=== PATIENT | female | born 1945 | race Caucasian/White ===

== ENCOUNTER → 2017-05-27 12:49 | Outpatient (CLI) | payer MEDICARE, MEDICAID, SELFPAY ==
--- NOTE | 2017-05-27 12:50 | CA_ITS ---
PROCEDURE: 2-D M-mode and color Doppler study INDICATIONS FOR THE TEST: Chest pain COPD Heart Murmur+ Tobacco Smoking Palpitations Fatigue Syncope Edema Hypertension+Diabetes Mellitus Rheumatic Fever SOB [place] Obesity+Hyperlipidemia+ Family History HD+ Additional History PATIENT INFORMATION HEIGHT: 54 WEIGHT: 138 GENDER: Female B/P: 130/84 2-D/M-MODE INTERPRETATION: 2-D MEASUREMENTS OBSERVED VALUES IN CMS Right Ventricular Dimension (RVDd) 2.2 Interventricular Septum (Thickness)(IVsd) 1.3 Left Ventricular Internal Dimensions(LVIDd) 3.7 Left Ventricular Posterior Wall (Thickness)(LVPWd) 1.3 Aortic Root 2.5 Aortic Cusp Separation Left Atrial Dimensions (LAD) 2D 1. Technically difficult study because of the patient's factor and poor acoustic windows 2. The left atrium is moderately enlarged, left ventricle is normal size, there is mild concentric left ventricular hypertrophy, visually estimated ejection fraction of 55% with no obvious regional wall motion abnormality. 3. The right atrium is mildly enlarged, right ventricle is normal size and contractility. 4. The aortic valve is minimally thickened and calcified. 5. The mitral valve leaflets are not well visualized, there is mitral calcification present, there appears to be prolapse of the posterior mitral leaflet. 6. The tricuspid valve leaflets are minimally thickened. 7. The pulmonic valve is poorly visualized. 8. No significant pericardial effusion noted. DOPPLER INTERROGATION: Doppler interrogation of the aortic, mitral and tricuspid valve reveals presence of mild aortic, there is mitral regurgitation which is difficult to quantify it is likely in severe range, and mild tricuspid regurgitation. Tricuspid and jet velocity insufficient for calculation of the right ventricular systolic pressure, grade 1 diastolic dysfunction seen with tissue Doppler evidence of raised left atrial pressure. CONCLUSION: 1. Technically difficult study because of the patient's factor and poor acoustic windows 2. Moderately enlarged left atrium, normal left ventricular size, mild concentric left ventricular hypertrophy, visually estimated ejection fraction 55% with no obvious regional wall motion abnormality, grade 1 diastolic dysfunction seen with tissue Doppler evidence of raised left atrial pressure. 3. Mild aortic regurgitation. 4. Abnormal mitral valve with likely severe mitral regurgitation, transesophageal echocardiogram is recommended for further evaluation of the mitral valve morphology and severity of the mitral regurg
== END ==
PROVIDERS: Family Provider Internal Medicine Adolescent Medicine; PCP Internal Medicine Adolescent Medicine; Visit Provider Internal Medicine Adolescent Medicine
DX: R01.1 Cardiac murmur, unspecified (principal); I35.1 Nonrheumatic aortic (valve) insufficiency
CPT/HCPCS: 93306

== ENCOUNTER 2017-07-01 11:52 | Day surgery (SDC) | payer MEDICARE, MEDICAID, SELFPAY ==
[2017-07-01] VITALS (7 sets, daily range): BP systolic 85–163; BP diastolic 46–104; PULSE 60–91; RESP 16–20; TEMP 36.6; O2SAT 93–98; BMI 33.7
--- NOTE | 2017-07-01 12:24 | CA_ITS ---
Procedure: Transesophageal echocardiogram Indication for procedure: MR Procedure: The patient was brought into cardiac catheter lab holding area in hemodynamically stable condition, after the informed consent, conscious sedation was provided with anesthesiologist, local anesthesia was applied, and transesophageal echocardiogram performed without any difficulty, patient tolerated the procedure well. Findings: 1. Left atrium is moderately enlarged, left atrial appendage is free of thrombus, there is adequate appendage flow by spectral Doppler. 2. The right atrium is normal size, 3. The intra-atrial septum is intact, there is no flow across the intra-atrial septum, agitated saline contrast study fails to identify intracardiac shunt. 4. The aortic valve is minimally thickened and fibrosed, there is no aortic stenosis, there is mild aortic insufficiency. 5. The mitral valve has mitral calcification, mitral valve leaflets of myxomatous, there is mary prolapse of the both anterior and posterior mitral leaflet. There is no mitral stenosis, there is severe mitral regurgitation. 6. The tricuspid valve is grossly normal, there is mild tricuspid regurgitation 7. The pulmonic valve is structurally normal. 8. The right ventricle is normal size and contractility. 9. The left ventricle is normal size, visually estimated ejection fraction 55% with no obvious regional wall motion abnormality. 10. The ascending arch and descending thoracic aorta is normal 11. No significant pericardial effusion noted. Conclusion: 1. Moderately enlarged left atrium, normal left ventricular size, visually estimated ejection fraction 55% with no obvious regional wall motion abnormality. 2. Abnormal mitral valve as described above with prolapse of both anterior and posterior mitral leaflet, associated with severe mitral regurgitation. 3. Agitated saline contrast study is to identify intracardiac shunt. 4. Mild aortic insufficiency. 5. No significant pericardial effusion noted.
--- NOTE | 2017-07-01 12:51 | HMH.ANESCL ---
[facility] Anesthesia Checklist - Patient Identification Patient Identification: Arm Band - Structural Data Admitted From: Long-term Nursing Facility Consent for Planned Operative Procedure(s) Verified: Yes Verified Documents: Surgical Consent, History and Physical - NPO Status Verified Time NPO: 00:00 - Additional verifications Patient : No Anesthesia Reactions: No - Airway Assessment C-Spine Mobility Assessed: Yes TMJ Mobility Assessed: Yes Dentition: Good Dentition - Neurological Assessment Level of Consciousness: Awake Hx Seizures: No Numbness or tingling in extremities: No - Anesthesia Plan Anesthesia Risk discussed: Yes Anesthesia Plan: Verified ASA Class: II Anesthesia Type: MAC [facility] Anesthesia HX I have reviewed the patient's past medical history: Yes Medical History: Reports:: Hypertension, Valvular Heart Disease (severe MVR) Other Surgeries: Yes: Hysterectomy-Total, Other (Multiple eye surgeries) *Family Hx:: Unable to obtain
--- NOTE | 2017-07-01 12:55 | P.PN_ITS ---
[facility] Anesthesia Checklist - Patient Identification Patient Identification: Arm Band - Structural Data Admitted From: Long-term Nursing Facility Consent for Planned Operative Procedure(s) Verified: Yes Verified Documents: Surgical Consent, History and Physical - NPO Status Verified Time NPO: 00:00 - Additional verifications Patient : No Anesthesia Reactions: No - Airway Assessment C-Spine Mobility Assessed: Yes TMJ Mobility Assessed: Yes Dentition: Good Dentition - Neurological Assessment Level of Consciousness: Awake Hx Seizures: No Numbness or tingling in extremities: No - Anesthesia Plan Anesthesia Risk discussed: Yes Anesthesia Plan: Verified ASA Class: II Anesthesia Type: MAC [facility] Anesthesia HX I have reviewed the patient's past medical history: Yes Medical History: Reports:: Hypertension, Valvular Heart Disease (severe MVR) Other Surgeries: Yes: Hysterectomy-Total, Other (Multiple eye surgeries) *Family Hx:: Unable to obtain
== END 2017-07-01 14:50 ==
PROVIDERS: Family Provider Internal Medicine Adolescent Medicine; PCP Internal Medicine Adolescent Medicine; Visit Provider Internal Medicine Cardiovascular Disease
DX: I34.0 Nonrheumatic mitral (valve) insufficiency (principal)
CPT/HCPCS: 93312

== ENCOUNTER → 2017-07-15 07:11 | Outpatient (CLI) | payer MEDICARE, MEDICAID, SELFPAY ==
--- NOTE | 2017-07-15 07:14 | NM_ITS ---
History and Indications: Mitral regurgitation, mitral valve prolapse. Procedure: Patient received a 0.4 mg of Lexiscan, resting heart rate was 82 bpm resting blood pressure 154/81, with Lexiscan maximum heart rate achieved was 107 bpm which is less than 85% of the maximum predicted heart rate and a blood pressure was 151/82. With Lexiscan patient denied any complained of chest pain or shortness of breath. Electrocardiogram: Resting electrocardiogram showed sinus rhythm, with progression, with Lexiscan occasional premature ventricular complex seen, there is less than 1.[address] segment depression noted from the baseline EKG. The EKG portion of the Lexiscan Myoview is nondiagnostic. Cardiac stress and resting SPECT images: Cardiac stress and rest SPECT images were obtained using technetium 99 Myoview 31.4 mCi at stress, and 9.7 mCi at rest. Gated SPECT further analysis of segmental wall motion and calculation of the ejection fraction. Cardiac stress and resting SPECT images show uniform myocardial activity without any segmental perfusion abnormality, computer derived ejection fraction is over 65% with no obvious regional wall motion abnormality, right ventricle is normal size and contractility. Conclusion: 1. The EKG portion of the Lexiscan Myoview is nondiagnostic. 2. No obvious scintigraphic evidence of reversible ischemia seen, computer ejection fraction over 65% with no signal wall motion abnormality, right ventricle is normal size and contractility. 3. Normal Lexiscan Myoview study.
== END ==
PROVIDERS: Family Provider Internal Medicine Adolescent Medicine; PCP Internal Medicine Adolescent Medicine; Visit Provider Internal Medicine Cardiovascular Disease
DX: I34.0 Nonrheumatic mitral (valve) insufficiency (principal); R09.89 Other specified symptoms and signs involving the circulatory and respiratory systems; R01.1 Cardiac murmur, unspecified; R93.1 Abnormal findings on diagnostic imaging of heart and coronary circulation; R94.31 Abnormal electrocardiogram [ECG] [EKG]; I10 Essential (primary) hypertension; Z82.49 Family history of ischemic heart disease and other diseases of the circulatory system; E66.9 Obesity, unspecified
CPT/HCPCS: 78452; 93017; A9502; J2785

== ENCOUNTER → 2018-02-22 14:16 | Outpatient (CLI) | payer MEDICARE, MEDICAID, SELFPAY | PROVIDERS: PCP Nurse Practitioner Family; Visit Provider Internal Medicine Cardiovascular Disease | DX: I10 Essential (primary) hypertension (principal); I34.0 Nonrheumatic mitral (valve) insufficiency; R01.1 Cardiac murmur, unspecified; R09.89 Other specified symptoms and signs involving the circulatory and respiratory systems; R94.31 Abnormal electrocardiogram [ECG] [EKG]; Z82.49 Family history of ischemic heart disease and other diseases of the circulatory system | CPT/HCPCS: 93306 ==

== ENCOUNTER → 2018-11-17 10:05 | Outpatient (CLI) | payer MEDICARE, MEDICAID, SELFPAY ==
--- NOTE | 2018-11-17 10:13 | XR_ITS ---
PROCEDURE: XR DEXA AXIAL SKELETON CLINICAL HISTORY: OSTEOPAROSIS COMPARISON: 09/17/2015 FINDINGS: The L1-L4 density has a T-score of -2 with BMD of 0.935. This has decreased by 1 percent. Lowest density in the pelvis is in the left femoral neck at 0.664 grams/centimeter sq with T-score of -2.7 consistent with osteoporosis and has decreased by 1.5 percent IMPRESSION: Osteoporosis without fracture risk. Treatment advised. Suggest follow-up exam November 2019 Dictated by: Juan David Laughlin MD 11/17/2018 17:55 Signed by: <Electronically signed by Juan David Laughlin MD in [place]> 11/17/2018 17:55
--- NOTE | 2018-11-17 10:13 | MM_ITS ---
PROCEDURE: MM DIG SCREENING MAMM BI W/CAD CLINICAL INDICATION: SCREENING routine screening mammogram. No new complaints. But no hormones. Noncontributory family history put COMPARISON: PB MAMM SCREEN BILAT DIG PNL from 07/15/2009 DMSB DIGITAL MAMM-SCREEN BILATERAL from 08/18/2012 DMSB DIG MAMM-SCREEN SUSIE from 08/22/2013 DMSB DIG MAMM-SCREEN SUSIE from 08/30/2014 DMDXUAVL DIG MAMM-DX UNI ADD VIEWS-LT from 09/13/2014 DMSB DIG MAMM-SCREEN SUSIE from 09/17/2015 TECHNIQUE: Standard CC and MLO images were obtained. R2 CAD reviewed. Additional left MLO and CC nipple profile view included-helpful FINDINGS: Minimal up to moderate residual fibroglandular elements bilaterally but no new findings of significance. No suspicious or dominant mass. Stable minor asymmetry. scattered small calcifications in both breasts but no suspicious calcifications Right breast: No new areas of concern follow-up in 1 year Left breast. Additional MLO view is helpful in confirming stability on. MLO unchanged appearance since . Small grouping punctate calcifications deep left breast cc view have been present since 2014 2013 with no significant appearing change. On annual follow-up adequate IMPRESSION: Stable bilateral mammogram with no significant new findings. Stable mild asymmetry Follow-up 1 year recommended BI-RAD Category: 2 Benign Finding(s) FOLLOW-UP: 1YR 1 Year Follow-up (A letter has been sent to the patient regarding results of the study.) Dictated by: Yuri Andrew MD 11/18/2018 09:47 Signed by: <Electronically signed by Yuri Andrew MD in [place]> 11/18/2018 09:47
== END ==
PROVIDERS: PCP Internal Medicine Adolescent Medicine; Visit Provider Internal Medicine Adolescent Medicine
DX: Z12.31 Encounter for screening mammogram for malignant neoplasm of breast (principal); Z13.820 Encounter for screening for osteoporosis; M81.0 Age-related osteoporosis without current pathological fracture
CPT/HCPCS: 77067; 77080

== ENCOUNTER 2018-12-20 10:27 | Outpatient (CLI) | payer MEDICARE, MEDICAID, SELFPAY ==
[2018-12-20 10:42] VITALS: BP 150/94; PULSE 85; RESP 18; TEMP 36.6; O2SAT 98
== END 2018-12-20 11:01 | disposition home or self-care (01) ==
LOC: INF 10:27
PROVIDERS: PCP Internal Medicine Adolescent Medicine; Visit Provider Nurse Practitioner Family
DX: M81.0 Age-related osteoporosis without current pathological fracture (principal)
CPT/HCPCS: 96372; J0897

== ENCOUNTER → 2019-03-14 09:35 | Outpatient (CLI) | payer MEDICARE, MEDICAID, SELFPAY ==
--- NOTE | 2019-03-14 09:38 | CA_ITS ---
APPROVED REPORT EXAM: Comprehensive 2D, Doppler, and color-flow Echocardiogram Reading Tutor: Tika Alvarez RDCS Ht: 5 ft 6 in Wt: 132lbs BSA: 1.68 BP: 150/90 mmHg Indications: Mitral Valve Disease, Murmur, Hypertension/HDD 2D Dimensions LVOT 2.00 cm (M/F) 1.5-2.5 M-Mode Dimensions RVDd 1.38 cm (0.9-2.6) LVDd 4.41 cm (3.5-5.7) LVDs 3.33 cm (3.5-5.7) IVSd 1.45 cm (0.6-1.1) PWd 1.08 cm (0.6-1.1) EF (Teich) 48.90% FS 24.50% EDV (Teich) 88.20 mL ESV (Teich) 45.10 mL Aortic Valve AO VTI 149.01 (18-25 cm) Mitral Valve MV PHT 48.00 ms Left Ventricle Left atrium is moderately enlarged, left ventricle is normal size, mild concentric left ventricular hypertrophy, visually estimated ejection fraction 55% with no regional wall motion abnormality. Diastolic parameters are inconclusive. Right Ventricle Right atrium and right ventricular mildly enlarged with normal contractility. Aortic Valve Aortic valve is minimally thickened and fibrosed. There is no aortic stenosis. Mitral Valve Mitral valve leaflets are minimally thickened, leaflets are not well visualized, there is no mitral stenosis, there is severe mitral regurgitation. Tricuspid Valve Tricuspid valve is grossly normal, there is mild tricuspid regurgitation, calculated right ventricular systolic pressure 60 mmHg which is moderately elevated. Conclusion 1. Moderately enlarged left atrium, normal left ventricular size, mild concentric left ventricular hypertrophy, visually estimated ejection fraction 55% with no regional wall motion abnormality, diastolic parameters are inconclusive. 2. Abnormal mitral valve with severe mitral regurgitation, morphology of the valve is not well-visualized in the study. 3. Mild tricuspid regurgitation, calculated right ventricular systolic pressure 60 mmHg which is moderately elevated. 4. No significant pericardial effusion noted. Electronically signed by : Michele Paulson, 03/15/2019 05:46:36
== END ==
PROVIDERS: PCP Internal Medicine Adolescent Medicine; Visit Provider Internal Medicine Cardiovascular Disease
DX: I10 Essential (primary) hypertension (principal); I34.0 Nonrheumatic mitral (valve) insufficiency; R01.1 Cardiac murmur, unspecified; R94.31 Abnormal electrocardiogram [ECG] [EKG]
CPT/HCPCS: 93306

== ENCOUNTER → 2020-08-27 08:56 | Outpatient (CLI) | payer MEDICARE, MEDICAID, SELFPAY ==
--- NOTE | 2020-08-27 09:00 | XR_ITS ---
PROCEDURE: XR DEXA AXIAL SKELETON CLINICAL HISTORY: POST MENOPAUSAL COMPARISON: CR BONE3 BONE DENSITOMETRY(HIP:LT SPINE from 09/17/2015 FINDINGS: The right hip BMD is 0.578 with a T-score of -2.4. The left hip BMD is 0.593 with a T-score of -2.3. The lumbar spine BMD is 0.868 with a T-score of -1.6. Previously the lowest bone density was in the left femoral neck with T-score -2.6. IMPRESSION: This patient is considered osteopenic according to the World Health Organization criteria. Bone density is between 10 and 25 percent below young normal. Fracture risk is moderate. Treatment is advised. Based on these results a follow-up exam is recommended in 2 year. Dictated by: Juan David Laughlin MD 08/28/2020 07:44 Juan David Laughlin MD in [place] 08/28/2020 07:44
== END ==
PROVIDERS: PCP Internal Medicine Adolescent Medicine; Visit Provider Nurse Practitioner Family
DX: Z78.0 Asymptomatic menopausal state (principal); M85.89 Other specified disorders of bone density and structure, multiple sites
CPT/HCPCS: 77080

== ENCOUNTER → 2021-09-11 09:21 | Outpatient (CLI) | payer MEDICARE, MEDICAID, SELFPAY ==
--- NOTE | 2021-09-11 09:27 | XR_ITS ---
FINAL REPORT TECHNIQUE: Bone mineral density was calculated of the lumbar spine and hip. CLINICAL HISTORY: POST MENOPAUSAL COMPARISON: August 27, 2020 FINDINGS: DEXA BONE DENSITY AXIAL SKELETON Using L1-4, the bone mineral density of the spine is 0.886 g/cm2, corresponding to T-score of -1.5. Was previously 0.868 g/cm2 corresponding to a T score of -1.6. Using the left hip, the bone mineral density of the femoral neck is 0.586 g/cm2, corresponding to a T-score of -2.4. This previously 0.593 g/cm2 corresponding to a T score of -2.3. NOTE: T-score: Standard deviation compared with peak bone mass of young adult mean. *Following the recommendations of the International Society of Bone densitometry, classification of hip BMD is based on the lower of two T-scores; total hip or femoral neck. IMPRESSION: Diminished bone mineral density of the lumbar spine and left hip consistent with osteopenia, stable from prior . Reviewed, Interpreted and Dictated by Jerry Ledezma III, MD Transcribed by Marissa Soto Authenticated and [facility]
== END ==
PROVIDERS: PCP Internal Medicine Adolescent Medicine; Visit Provider Internal Medicine Adolescent Medicine
DX: M81.0 Age-related osteoporosis without current pathological fracture (principal)
CPT/HCPCS: 77080

== ENCOUNTER → 2021-12-12 11:01 | Outpatient (CLI) | payer MEDICARE, MEDICAID, SELFPAY ==
[2021-12-12 12:06] LABS: Basophils % 0.5 % (0.1-2.0); Eosinophils # 0.1 K/mm3 (0.0-0.4); Eosinophils % 1.6 % (0.1-12.0); Hemoglobin 12.1 g/dL (12.2-16.2); Lymphocytes # 1.2 K/mm3 (0.7-4.5); Lymphocytes % 16.3 % (10-50); Mean Corpuscular HGB Conc 31.7 g/dL (31.8-35.4); Mean Corpuscular Volume 97.8 fl (81-99); Mean Platelet Volume 7.6 fl (7.4-10.4); Monocytes # 0.5 K/mm3 (0.1-1.0); Monocytes % 7.6 % (1.7-9.3); Neutrophils # 5.2 K/mm3 (1.8-7.8); Platelet Count 225 K/mm3 (142-424); Red Blood Count 3.89 M/mm3 (4.20-5.40); Red Cell Distribution Width 18.5 % (11.5-17.5)
[2021-12-12 12:53] LABS: Anion Gap 11.6 mEq/L (5-15); Blood Urea Nitrogen 27 mg/dl (7-17); Calcium 9.1 mg/dl (8.4-10.2); Carbon Dioxide 22 mmol/L (22.0-30.0); Chloride 110 mmol/L (98-107); Estimated Glomerular Filt Rate 48 ml/min (>60); GFR (African American) 58 ML/MIN (>60); Glucose 106 mg/dl (74-100); Potassium 4.6 mmoL/L (3.5-5.1); Sodium 139 mmol/L (136-145)
[2021-12-12 13:02] LABS: NT Pro Brain Natriuretic Pep. 3840 pg/mL (0-450)
== END ==
PROVIDERS: PCP Nurse Practitioner Family; Visit Provider Nurse Practitioner Family
DX: I34.0 Nonrheumatic mitral (valve) insufficiency (principal); M15.0 Primary generalized (osteo)arthritis; R06.09 Other forms of dyspnea
CPT/HCPCS: 80048; 83880; 85025

== ENCOUNTER → 2021-12-16 07:53 | Outpatient (CLI) | payer MEDICARE, MEDICAID, SELFPAY ==
[2021-12-16 08:40] LABS: Chloride 101 mmol/L (98-107)
[2021-12-16 08:41] LABS: Potassium 3.4 mmoL/L (3.5-5.1); Sodium 140 mmol/L (136-145)
[2021-12-16 08:44] LABS: Anion Gap 15.4 mEq/L (5-15); Blood Urea Nitrogen 27 mg/dl (7-17); Calcium 8.6 mg/dl (8.4-10.2); Carbon Dioxide 27 mmol/L (22.0-30.0); Estimated Glomerular Filt Rate 54 ml/min (>60); GFR (African American) 65 ML/MIN (>60); Glucose 105 mg/dl (74-100)
== END ==
PROVIDERS: PCP Nurse Practitioner Family; Visit Provider Nurse Practitioner Family
DX: I10 Essential (primary) hypertension (principal)
CPT/HCPCS: 80048

== ENCOUNTER → 2022-01-27 09:16 | Outpatient (CLI) | payer MEDICARE, MEDICAID, SELFPAY ==
--- NOTE | 2022-01-27 09:22 | CA_ITS ---
APPROVED REPORT EXAM: Comprehensive 2D, Doppler, and color-flow Echocardiogram Diamond Cleaver: Casie Caballero RVT Ht: 4 ft 6 in Wt: 126lbs BSA: 1.42 BP: 148/60 mmHg Indications: EDEMA,CAD,SEVERE MR WITH FAILED MITRAL RING,HTN,DM,MURMUR 2D Dimensions LVOT 2.08 cm (M/F) 1.5-2.5 LA Volume 67.80 mL LA Volume Index 47.74 mL/m2 (M/F) 16-34 M-Mode Dimensions RVDd 2.93 cm (0.9-2.6) LA Diam 4.49 cm (1.9-4.0) LVDd 4.38 cm (3.5-5.7) Ao Diam 3.00 cm (2.0-3.7) LVDs 3.14 cm (3.5-5.7) IVSd 0.76 cm (0.6-1.1) PWd 0.85 cm (0.6-1.1) EF (Teich) 55.00% FS 28.30% EDV (Teich) 86.80 mL TAPSE 2.58 (<1.7) ESV (Teich) 39.10 mL LV Diastology E Decel Time 150.00 (160-240 msec) E/A Ratio 1.5 MED E' 9.70 (< 7 cm/sec) E'/MED E' Ratio 10.45 (>14) LAT E' 13.80 (<10 cm/sec) E/LAT E' Ratio 7.35 (>14) Aortic Valve AI PHT 725.00 ms AO Peak GR. 3.60 mmHg AO VTI 34.20 (18-25 cm) Mitral Valve MV E Max Kojo. 101.00 (40-130 cm/s) MV A Velocity 69.00 (40-130 cm/s) E/A Ratio 1.46 MV Decel. Time 150.00 (160-240 ms) MV PHT 44.00 ms Pulmonary Valve PV Peak Velocity 38.00 (50-150 cm/s) Tricuspid Valve TR P. Velocity 395.00 cm/s RAP Estimate 10.00 mmHg RVSP 72.30 mmHg Left Ventricle Technically difficult study because of the patient factors and poor acoustic windows, endocardial surfaces are poorly visualized. Left atrium is moderately enlarged, left ventricle is normal size mild concentric left hypertrophy, estimated ejection fraction 55% with no regional wall motion abnormality, diastolic parameters are inconclusive. There is flattening of the interventricular septum during systole and diastole consistent with pressure and volume overload in right ventricle. Right Ventricle Right atrium and right ventricle moderately enlarged, contractility of the right ventricle is normal. Aortic Valve Aortic valve is thickened and calcified without aortic stenosis, there is mild aortic insufficiency. Mitral Valve Historically patient has mitral valve ring, leaflets are minimally thickened, degenerative changes present both anterior posterior mitral leaflet, there is severe mitral regurgitation. Tricuspid Valve Tricuspid valve leaflets are minimally thickened, there is moderate to severe tricuspid regurgitation, calculated right ventricular systolic pressure 64 mm of Pulmonic Valve Pulmonic valve is poorly visualized. Great Vessels Aortic root is normal size. Inferior vena cava is mildly dilated without significant inspiratory collapse. Pericardium No significant pericardial effusion. Conclusion 1. Biatrial enlargement, normal left ventricular size mild concentric left ventricular hypertrophy, estimated ejection fraction 55% with no regional wall motion abnormality, diastolic parameters are inconclusive. There is flattening of the interventricular septum during systole and diastole consistent with pressure and volume overload in right ventricle. 2. Moderately enlarged right ventricle with normal contractility 3. Mild aortic, severe mitral and moderate to severe tricuspid regurgitation, calculated right ventricular systolic pressure was 64 mmHg. 4. No significant pericardial effusion. 5. Inferior vena cava is mildly dilated without significant inspiratory collapse. Electronically signed by : Michele Paulson MD 01/27/2022 21:03:01
== END ==
PROVIDERS: PCP Nurse Practitioner Family; Visit Provider Internal Medicine Adolescent Medicine
DX: R60.0 Localized edema (principal)
CPT/HCPCS: 93306

== ENCOUNTER → 2022-02-02 12:47 | Outpatient (CLI) | payer OTHER, MEDICARE, MEDICAID, SELFPAY ==
[2022-02-02 15:09] LABS: Anion Gap 15.4 mEq/L (5-15); Blood Urea Nitrogen 20 mg/dl (7-17); Calcium 8.3 mg/dl (8.4-10.2); Carbon Dioxide 27 mmol/L (22.0-30.0); Chloride 99 mmol/L (98-107); Estimated Glomerular Filt Rate 44 ml/min (>60); GFR (African American) 53 ML/MIN (>60); Glucose 81 mg/dl (74-100); Sodium 139 mmol/L (136-145)
[2022-02-02 15:35] LABS: Potassium 2.4 mmoL/L (3.5-5.1)
== END ==
PROVIDERS: PCP Internal Medicine Adolescent Medicine; Visit Provider Internal Medicine Adolescent Medicine
DX: I34.0 Nonrheumatic mitral (valve) insufficiency (principal); I25.10 Atherosclerotic heart disease of native coronary artery without angina pectoris; I10 Essential (primary) hypertension; M81.0 Age-related osteoporosis without current pathological fracture; F41.9 Anxiety disorder, unspecified; F32.9 Major depressive disorder, single episode, unspecified; H54.8 Legal blindness, as defined in USA; H35.30 Unspecified macular degeneration; M62.81 Muscle weakness (generalized); R11.0 Nausea; M15.0 Primary generalized (osteo)arthritis
CPT/HCPCS: 80048